=== PATIENT | female | born 1940 | race Caucasian/White ===

== ENCOUNTER 2017-09-28 11:43 | Emergency (ER) | payer MEDICARE ==
[2017-09-28 11:58] VITALS: BP 207/88; PULSE 76; RESP 16; TEMP 98.2; O2SAT 100
[2017-09-28] MEDS ORDERED: SODI650T PO (12:17)
[2017-09-28] MEDS ORDERED: PIOG15TA5 PO (12:17)
[2017-09-28] MEDS ORDERED: METO1TAB42 PO (12:17)
[2017-09-28] MEDS ORDERED: MAG-TAB PO (12:17)
[2017-09-28] MEDS ORDERED: ATOR20TA15 PO (12:17)
[2017-09-28] MEDS ORDERED: LEVO.1 PO (12:17)
[2017-09-28] MEDS ORDERED: VITA1000 PO (12:17)
[2017-09-28] MEDS ORDERED: PARI1CAP4 PO (12:17)
--- NOTE | 2017-09-28 12:17 | PD ---
HPI Chief Complaint: Fall Time Seen by Provider: 12:02 Travel History International Travel<30 days: No Contact w/Intl Traveler<30days: No Traveled to known affect area: No History of Present Illness HPI This patient complains of left shoulder pain. 30 minutes ago she tripped on her sandals and fell onto the left shoulder. She denies head or neck pain. No complaint other than left shoulder pain. Is worse with movement. Severity is moderate. No alleviating factors. Incidental note is a blood pressure of 207 systolic. She does take 3 different antihypertensives which she took 5 hours ago. Recheck blood pressure 220 systolic. PFSH Past Medical History Cardiovascular Problems: Yes Diabetes: Yes Patient Takes Glucophage: No Immunizations Current: Yes Tetanus Vaccination: Unknown : 3 Para: 2 Miscarriage: 1 : 0 Past Surgical History Surgical History: No Previous Surgery Hysterectomy: Yes Social History Alcohol Use: Yes (rare) Tobacco Use: No Substance Use: No Allergies-Medications (Allergen,Severity, Reaction): Coded Allergies: No Known Allergies (Unverified , 09/28/17) Reported Meds & Prescriptions Reported Meds & Active Scripts Active Reported Vitamin D-1000 (Cholecalciferol) 1,000 Unit Tab 1,000 Units PO DAILY Synthroid (Levothyroxine Sodium) 100 Mcg Tab 100 Mcg PO DAILY Sodium Bicarbonate 650 Mg Tab 650 Mg PO BIDPC Pioglitazone (Pioglitazone HCl) 15 Mg Tab 15 Mg PO DAILY Paricalcitol 1 Mcg Cap 1 Mcg PO DAILY Metoprolol Succinate ER 24 HR (Metoprolol Succinate) 25 Mg Tab 25 Mg PO DAILY Mag-Delay (Magnesium Chloride) 70 Mg Magnesium Tab 64 Mg PO BID Atorvastatin (Atorvastatin Calcium) 20 Mg Tab 20 Mg PO HS Review of Systems General / Constitutional: No: Fever Eyes: No: Visual changes HENT: No: Headaches Cardiovascular: No: Chest Pain or Discomfort Respiratory: No: Shortness of Breath Gastrointestinal: No: Abdominal Pain Genitourinary: No: Dysuria Musculoskeletal: Positive: Arthralgias, Limited ROM, Pain Skin: No Rash Neurologic: No: Weakness Psychiatric: No: Depression Endocrine: No: Polydipsia Hematologic/Lymphatic: No: Easy Bruising Physical Exam Narrative GENERAL: Well-nourished, well-developed patient in no apparent distress. SKIN: Focused skin assessment reveals no rash and nodules. Skin is Warm and dry. HEAD: Atraumatic. Normocephalic. EYES: Pupils equal and round. No scleral icterus. No injection or drainage. ENT: No nasal bleeding or discharge. Mucous membranes pink and moist. NECK: Trachea midline. No JVD. CARDIOVASCULAR: Regular rate and rhythm. No murmur appreciated. RESPIRATORY: No accessory muscle use. Clear to auscultation. Breath sounds equal bilaterally. GASTROINTESTINAL: Abdomen soft, non-tender, nondistended. Hepatic and splenic margins not palpable. MUSCULOSKELETAL: No obvious deformities. No clubbing. No cyanosis. No edema. Decent range of motion left shoulder. There is some tenderness of the humeral head. No open wound or bruising NEUROLOGICAL: Awake and alert. No obvious cranial nerve deficits. Motor grossly within normal limits. Normal speech. PSYCHIATRIC: Appropriate mood and affect; insight and judgment normal. No midline tenderness. No bruising or swelling Data Data Last Documented VS Vital Signs Date Time Temp Pulse Resp B/P (MAP) Pulse Ox O2 Delivery O2 Flow Rate FiO2 09/28/17 13:25 78 20 172/74 (106) 99 Room Air 09/28/17 11:58 98.2 Orders Orders Shoulder, Complete (>2vws) (09/28/17 ) Oxycodone-Acetamin 5-325 Mg (Percocet (09/28/17 12:30) Clonidine (Catapres) (09/28/17 12:30) Splint Or Brace Apply/Monitor (09/28/17 13:01) Ed Discharge Order (09/28/17 13:34) MDM Medical Decision Making Medical Screen Exam Complete: Yes Emergency Medical Condition: Yes Medical Record Reviewed: Yes Differential Diagnosis Contusion, dislocation, humerus fracture Narrative Course I have reviewed the patient's electronic medical record. I reviewed her left shoulder x-rays which revealed a left humerus fracture. Gave her a pain pill Regarding her accelerated hypertension I gave her dose of clonidine and will reassess she is not having Headache or any cardiac or neurologic symptoms I placed her in a sling. Repeat blood pressure is 172 systolic Pain medicine prescribed Diagnosis Primary Impression: Closed left humeral fracture Qualified Codes: S42.255A - Nondisplaced fracture of greater tuberosity of left humerus, initial encounter for closed fracture Additional Impression: Accelerated hypertension Additional Instructions: Follow-up with orthopedist The patient was warned about potential sedation for the medications they will receive on prescription. Apply ice Wear sling Check and record blood pressure daily Med/Other Pt SpecificInfo: Prescription(s) given Disposition: 01 DISCHARGE HOME Condition: Stable Pipo Haji MD Sep 28, 2017 12:17
[2017-09-28] MEDS ORDERED: cloNIDine HCL 0.2 MG TAB PO ONE (12:30)
[2017-09-28] MEDS ORDERED: oxyCODONE/ACETAMINOPHEN 5 MG/325 MG TAB PO ONE (12:30)
[2017-09-28 12:51] VITALS: BP 216/95; PULSE 76; RESP 18; O2SAT 99
--- NOTE | 2017-09-28 12:56 | RADRPT ---
EXAM DATE/TIME: 09/28/2017 12:31 [facility] COMPARISON: No previous studies available for comparison. INDICATIONS : Pain on lateral side of left shoulder post fall today. MEDICAL HISTORY : None. SURGICAL HISTORY : None. ENCOUNTER: Initial ACUITY: 1 day PAIN SCORE: 9/10 LOCATION: Left Shoulder. FINDINGS: Mild hypertrophic changes of the acromioclavicular joint. There is a slightly displaced fracture of l eft proximal humerus, at the greater tuberosity to the surgical neck level. CONCLUSION: Left proximal humerus fracture. Phoenix Zendejas MD on September 28, 2017 at 12:52 Board Certified Radiologist. This report was verified electronically.
[2017-09-28 13:25] VITALS: BP_SYST 172; BP_DIAS 174; BP_DIAS 74; PULSE 78; RESP 20; O2SAT 99
[2017-09-28] MEDS ORDERED: PERC5TAB12 PO (13:38)
== END 2017-09-28 13:52 | disposition home or self-care (01) ==
LOC: NEPD 11:43
DX: S42.255A Nondisplaced fracture of greater tuberosity of left humerus, initial encounter for closed fracture (principal); I10 Essential (primary) hypertension; W01.0XXA Fall on same level from slipping, tripping and stumbling without subsequent striking against object, initial encounter
CPT/HCPCS: 29240; 73030